=== PATIENT | female | born 1995 | race Caucasian/White ===

== ENCOUNTER → 2017-07-31 | Outpatient (REF) | payer OTHER | LOC: M LAB REF 13:25 | PROVIDERS: ATTEND Physician Assistant | DX: R13.10 Dysphagia, unspecified (principal) ==

== ENCOUNTER → 2020-08-31 | Outpatient (REF) | payer OTHER ==
[2020-08-31 17:51] LABS: HEMATOCRIT 41.7 % (36.0-47.0); HEMOGLOBIN 14.2 g/dl (12.0-15.5); MEAN CORPUSCULAR HEMOGLOBIN 32.1 pg (27.0-33.0); MEAN CORPUSCULAR HGB CONC 34.1 g/dl (32.0-36.5); MEAN CORPUSCULAR VOLUME 94.1 fl (80.0-96.0); PLATELET COUNT, AUTOMATED 388 10^3/uL (150-450); RED BLOOD COUNT 4.43 10^6/uL (4.00-5.40); WHITE BLOOD COUNT 13.2 10^3/uL (4.0-10.0)
[2020-08-31 19:06] LABS: HCG, SERUM QUANTITATIVE 8429 MIU/ML; HEPATITIS C VIRUS ABY INDEX < 0.0 INDEX (<0.8); HIV 1&2 SCREEN CENTAUR NEGATIVE (NEGATIVE)
== END ==
LOC: M LAB REF 17:10
PROVIDERS: ATTEND Advanced Practice Midwife
DX: O36.80X0 Pregnancy with inconclusive fetal viability, not applicable or unspecified (principal)

== ENCOUNTER → 2020-09-07 | Outpatient (CLI) | payer BC ==
--- NOTE | 2020-09-07 08:44 | REP ---
INDICATION: DATING AND VIABILITY. COMPARISON: None. TECHNIQUE: Transabdominal scanning is performed along with transvaginal imaging. FINDINGS: Scanning demonstrates a intrauterine gestational sac containing a yolk sac and embryonic pole. heart rate is recorded at 116 beats per minute. The crown-rump length of the embryonic pole is 7 mm. This corresponds with a 6 week 4 day gestational age estimate. There is a 2.2 cm corpus luteal cyst in the maternal right ovary. No other extra uterine abnormality is observed. IMPRESSION: Viable single intrauterine gestation at 6 weeks 4 days by crown-rump length. HOME by sonography 29 April 2021. No complication is I dense <Electronically signed by Cam Horn > 09/07/20 [id number]
== END ==
LOC: M WHC 06:21
PROVIDERS: ATTEND Advanced Practice Midwife
DX: O36.80X0 Pregnancy with inconclusive fetal viability, not applicable or unspecified (principal); Z3A.01 Less than 8 weeks gestation of pregnancy

== ENCOUNTER → 2020-10-03 | Outpatient (REF) | payer BC | LOC: M LAB REF 16:09 | PROVIDERS: ATTEND Advanced Practice Midwife | DX: Z34.01 Encounter for supervision of normal first pregnancy, first trimester (principal) ==

== ENCOUNTER → 2020-11-01 | Outpatient (REF) | payer BC | LOC: M LAB REF 16:30 | PROVIDERS: ATTEND Advanced Practice Midwife | DX: N39.0 Urinary tract infection, site not specified (principal) ==

== ENCOUNTER → 2020-12-20 | Outpatient (CLI) | payer BC ==
--- NOTE | 2020-12-20 09:37 | REP ---
INDICATION: ANATOMY COMPARISON: None. TECHNIQUE: Transabdominal obstetrical ultrasound with color Doppler evaluation. FINDINGS: Examination demonstrates a single live intrauterine in cephalic presentation. motion is identified by technologist. Placenta is noted anterior and grade 1 without evidence for placenta previa or abruption. Amniotic fluid volume is normal. Cervix measures 4.3 cm in length and appears closed.. Gestational age by LMP and 1st U/S 21 weeks 3 days with HOME 04/29/2021. Gestational age by current measurements 21 weeks 6 days with HOME 04/26/2021. FHR equals 147 beats per minute. BPD: 5.1 cm at 21 weeks 4 days HC: 19.1 cm at 21 weeks 2 days AC: 16.2 cm at 21 weeks 2 days FL: 3.9 cm at 22 weeks 5 days HL: 3.6 cm at 22 weeks 3 days HC/AC: 1.17 Estimated weight 456 grams (68thpercentile). Anatomical assessment demonstrates normal structures including cranium, choroid plexus, cavum, cerebellum/posterior fossa, lungs, diaphragm, stomach, cord insertion/three-vessel cord, kidneys/bladder, spine, and extremities. IMPRESSION: 1. Single live intrauterine in cephalic presentation demonstrating appropriate estimated weight and growth. 2. Limited evaluation of the facial features/profile and heart/ventricular outflow tracts may warrant re-evaluation. Remainder of the anatomical assessment is complete and normal. <Electronically signed by Mason Funes > 12/20/20 [id number]
== END ==
LOC: M WHC 06:56
PROVIDERS: ATTEND Advanced Practice Midwife
DX: Z36.9 Encounter for antenatal screening, unspecified (principal); Z3A.21 21 weeks gestation of pregnancy

== ENCOUNTER → 2021-01-22 | Outpatient (CLI) | payer BC ==
--- NOTE | 2021-01-22 08:18 | REP ---
INDICATION: F/U ANATOMY COMPARISON: 12/20/2020 TECHNIQUE: Transabdominal obstetrical ultrasound with color Doppler evaluation. FINDINGS: Examination demonstrates a single live intrauterine in breech presentation. motion is identified by technologist. Placenta is noted anterior and grade 1 without evidence for placenta previa or abruption. Amniotic fluid volume is normal. Cervix measures 3.0 cm in length and appears closed.. Selected gestational age: 26 weeks 1 day with HOME 04/29/2021. Gestational age by current measurements 26 weeks 1 day with HOME 04/29/2021. FHR equals 147 beats per minute. Estimated weight 930 grams (55thpercentile). Anatomical assessment demonstrates normal structures including four-chamber heart/ventricular outflow tracts and facial profile.. IMPRESSION: Single live intrauterine in breech presentation demonstrating appropriate interval growth. In conjunction with prior examination anatomical assessment is complete and normal. <Electronically signed by Mason Funes > 01/22/21 [id number]
== END ==
LOC: M WHC 07:00
PROVIDERS: ATTEND Obstetrics & Gynecology
DX: Z34.02 Encounter for supervision of normal first pregnancy, second trimester (principal)

== ENCOUNTER → 2021-02-06 | Outpatient (CLI) | payer BC ==
[2021-02-06 15:26] LABS: HEMATOCRIT 34.1 % (36.0-47.0); HEMOGLOBIN 11.5 g/dl (12.0-15.5); MEAN CORPUSCULAR HGB CONC 33.7 g/dl (32.0-36.5); MEAN CORPUSCULAR VOLUME 97.7 fl (80.0-96.0); PLATELET COUNT, AUTOMATED 318 10^3/uL (150-450); RED BLOOD COUNT 3.49 10^6/uL (4.00-5.40); WHITE BLOOD COUNT 10.9 10^3/uL (4.0-10.0)
== END ==
LOC: M LAB 09:02
PROVIDERS: ATTEND Advanced Practice Midwife
DX: Z34.02 Encounter for supervision of normal first pregnancy, second trimester (principal)

== ENCOUNTER → 2021-04-10 | Outpatient (REF) | payer BC | LOC: M LAB REF 18:58 | PROVIDERS: ATTEND Obstetrics & Gynecology | DX: Z34.03 Encounter for supervision of normal first pregnancy, third trimester (principal) ==

== ENCOUNTER → 2022-01-24 | Outpatient (REF) | payer BC ==
[2022-01-24 12:55] LABS: HEMATOCRIT 37.4 % (36.0-47.0); HEMOGLOBIN 13.4 g/dl (12.0-15.5); MEAN CORPUSCULAR HGB CONC 35.8 g/dl (32.0-36.5); MEAN CORPUSCULAR VOLUME 92.1 fl (80.0-96.0); PLATELET COUNT, AUTOMATED 300 10^3/uL (150-450); RED BLOOD COUNT 4.06 10^6/uL (4.00-5.40)
[2022-01-24 14:06] LABS: HCG, SERUM QUANTITATIVE 25778 MIU/ML; HEPATITIS B SURFACE ANTIGEN NEGATIVE (NEGATIVE)
[2022-01-24 14:07] LABS: HEPATITIS C VIRUS ABY INDEX 0.1 INDEX (<0.8)
[2022-01-24 14:08] LABS: HIV 1&2 SCREEN CENTAUR NEGATIVE (NEGATIVE)
== END ==
LOC: M LAB REF 12:12
PROVIDERS: ATTEND Obstetrics & Gynecology
DX: O36.80X0 Pregnancy with inconclusive fetal viability, not applicable or unspecified (principal); Z32.01 Encounter for pregnancy test, result positive

== ENCOUNTER → 2022-04-12 | Outpatient (CLI) | payer BC ==
[2022-04-12 13:31] LABS: HEMATOCRIT 30.2 % (36.0-47.0); HEMOGLOBIN 10.7 g/dl (12.0-15.5); MEAN CORPUSCULAR HEMOGLOBIN 33.5 pg (27.0-33.0); MEAN CORPUSCULAR HGB CONC 35.4 g/dl (32.0-36.5); MEAN CORPUSCULAR VOLUME 94.7 fl (80.0-96.0); PLATELET COUNT, AUTOMATED 288 10^3/uL (150-450); RED BLOOD COUNT 3.19 10^6/uL (4.00-5.40)
== END ==
LOC: M LAB 11:28
PROVIDERS: ATTEND Obstetrics & Gynecology
DX: Z34.82 Encounter for supervision of other normal pregnancy, second trimester (principal)
CPT/HCPCS: 36415; 82950; 85027; 86850; 86901; J2790

== ENCOUNTER → 2022-06-05 | Outpatient (REF) | payer BC | LOC: M LAB REF 12:26 | PROVIDERS: ATTEND Obstetrics & Gynecology | DX: Z34.83 Encounter for supervision of other normal pregnancy, third trimester (principal) ==